=== PATIENT | male | born 1965 | race Caucasian/White ===

== ENCOUNTER 2023-12-13 21:30 | Emergency (ER) | payer MEDICAID ==
[~2023-12-13] VITALS: Ht 177.8 cm; Wt 81.8 kg
[2023-12-13 21:36] VITALS: TEMP 99
[2023-12-14 01:00] VITALS: BP 119/73; PULSE 69; RESP 18; O2SAT 97
[2023-12-14] MEDS ORDERED: HYDR-4062 PO (01:06)
[2023-12-14] MEDS: HYDROCODONE/ACETAMINOPHEN 5-325 MG TABLET PO ONE (01:19)
== END 2023-12-14 03:12 | disposition home or self-care (01) ==
LOC: EMS 21:30
DX: S92.901A Unspecified fracture of right foot, initial encounter for closed fracture (principal); I10 Essential (primary) hypertension; F12.90 Cannabis use, unspecified, uncomplicated; Z90.49 Acquired absence of other specified parts of digestive tract; W22.8XXA Striking against or struck by other objects, initial encounter; Y93.89 Activity, other specified; Y92.89 Other specified places as the place of occurrence of the external cause; Y99.8 Other external cause status
CPT/HCPCS: 29515; 99283